=== PATIENT | male | born 1945 | race American Indian/Alaskan Native ===

== ENCOUNTER 2019-08-25 10:35 | Emergency (ER) | payer MEDICARE ==
[2019-08-25 10:42] VITALS: BP 152/44
--- NOTE | 2019-08-25 10:56 | Event Note ---
ED Screening Note ED Screening Note: had a fall yesterday left shoulder pain and left wrist walking with a walker and tripped no LOC This initial assessment/diagnostic orders/clinical plan/treatment(s) is/are subject to change based on patients health status, clinical progression and re- assessment by fellow clinical providers in the ED. Further treatment and workup at subsequent clinical providers discretion. Patient/guardian urged not to elope from the ED as their condition may be serious if not clinically assessed and managed. Initial orders include: XR left wrist XR left shoulder
[2019-08-25] MEDS ORDERED: HYDROcodone/ACETAMINOPHEN 5-325 MG TAB PO ONE (11:26)
--- NOTE | 2019-08-25 11:26 | Emergency Department Report ---
Upper Extremity - HPI Chief Complaint: Extremity Injury, Upper Stated Complaint: FALL Time Seen by Provider: 08/25/19 10:53 Upper Extremity: Left Shoulder, Left Arm Occurred When: 1 Day (yesterday) Mechanism: Fall Severity: severe Symptoms: Yes Pain with Movement, Yes Limited Range of Movement, Yes Weakness Other History: Mr. Westbrook is a 74 yo male with hx of HTN, CVA, prostate CA, dyslipidemia who presents with left arm pain. Patient fell down the driveway. He tripped over the curb yesterday. He has left arm and left leg weakness due to stroke. 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 He has severe pain in the left arm with limited range of motion. PCP Dr. Ramos Zamudio. He walks with a walker. His conditioning has declined. He normall walks daily. However, he has been unable to walk as frequently due to the current COVID-19 pandemic. ED Review of Systems ROS: Stated complaint: FALL Other details as noted in HPI Comment: All other systems reviewed and negative Constitutional: denies: fever, malaise Respiratory: denies: cough Cardiovascular: denies: chest pain ED Past Medical Hx - Past Medical History Previous Medical History?: Yes Hx Hypertension: Yes Hx CVA: Yes Hx of Cancer: Yes (prostrate) Additional medical history: high cholesterol - Surgical History Hx Internal Defibrillator: Yes - Social History Smoking Status: Never Smoker Substance Use Type: None Upper Extremity Exam - Exam General: Vital signs noted. No distress. Alert and acting appropriately. Patient appears frail Needs assistance to transfer from wheelchair to bed. Holds left arm in pain. Left wrist drop evident, atrophic LUE contracted compared to RUE, deformity upper arm near shoulder, intact skin Head and Torso: No HEENT Abnormality, No Neck Tenderness, No Chest/Lungs Abnormality, No Abdominal Tenderness, No Back Tenderness Shoulder Exam: Yes Shoulder Tenderness, Yes Clavicle Tenderness, Yes Shoulder Deformity, Yes AC Joint Tenderness, No Normal Range of Motion in Shoulder Arm Exam: Yes Arm/Humerus Tenderness, Yes Arm Deformity Elbow: No Elbow Tenderness, No Normal Range of Motion in Elbow, No Elbow Deformity Forearm: No Forearm Tenderness, No Forearm Deformity Wrist: No Wrist Tenderness, No Normal ROM in Wrist, No Wrist Deformity, No Snuffbox Tenderness, No Pain with Axial Thumb Compression Hand: No Hand Tenderness, No Hand Deformity, No Digit Tenderness, No Normal ROM in Digit(s) ED Course Vital Signs 08/25/19 08/25/19 10:40 10:42 Temperature 98.8 F Pulse Rate 69 Respiratory 16 Rate Blood Pressure 152/44 O2 Sat by Pulse 97 Oximetry ED Medical Decision Making - Radiology Data Radiology results: report reviewed left hand: osteopenia no significant DJD left humerus: no acute traumatic injury left forearm: osteopenia no acute findings - Medical Decision Making Left arm contusion left shoulder sprain status post mechanical fall. I strongly encourage his caregiver/sister to request home physical therapy by PCP to restore his physical conditioning. Sling provided for comfort: Recommended Tylenol [id number] for pain relief Critical care attestation.: If time is entered above; I have spent that time in minutes in the direct care of this critically ill patient, excluding procedure time. ED Disposition Clinical Impression: Contusion of left arm, Sprain of left shoulder Disposition: DC-01 TO HOME OR SELFCARE Is pt being admited?: No Does the pt Need Aspirin: No Condition: Stable Instructions: Shoulder Sprain (ED) Referrals: PRIMARY CAREMD [Primary Care Provider] - NURA GARNER MD [Staff Physician] - 3-5 Days
--- NOTE | 2019-08-25 12:33 | XRay Report ---
LEFT HAND 2 VIEWS INDICATION: hand pain fall. COMPARISON: None. IMPRESSION: Osteopenia is evident. No acute osseous or soft tissue abnormality. No significant DJD . LEFT FOREARM 2 VIEWS INDICATION: Pain after fall. COMPARISON: None. IMPRESSION: Osteopenia is evident. No acute osseous or soft tissue abnormality. No significant DJD . Signer Name: Ronn Raza Jr, MD Signed: 08/25/2019 12:29 PM Workstation Name: [id number]
--- NOTE | 2019-08-25 12:37 | XRay Report ---
XR humerus 2+V LT INDICATION / CLINICAL INFORMATION: arm pain. COMPARISON: None available. FINDINGS: BONES/JOINT(S): No acute fracture or subluxation. No significant degenerative changes. No focal bone lesion. SOFT TISSUES: No significant abnormality. ADDITIONAL FINDINGS: None. Signer Name: Anjum Cordoba MD Signed: 08/25/2019 12:32 PM Workstation Name: [id number]
== END 2019-08-25 13:35 | disposition home or self-care (01) ==
LOC: ED 10:35
DX: S43.492A Other sprain of left shoulder joint, initial encounter (principal); S40.022A Contusion of left upper arm, initial encounter; I10 Essential (primary) hypertension; E78.00 Pure hypercholesterolemia, unspecified; Z86.73 Personal history of transient ischemic attack (TIA), and cerebral infarction without residual deficits; Z85.46 Personal history of malignant neoplasm of prostate; Z91.018 Allergy to other foods; X58.XXXA Exposure to other specified factors, initial encounter; Y93.89 Activity, other specified; Y92.89 Other specified places as the place of occurrence of the external cause; Y99.8 Other external cause status

== ENCOUNTER 2021-07-14 17:38 | Emergency (ER) | payer MEDICARE ==
[2021-07-14 18:42] VITALS: BP 138/37
== END 2021-07-15 07:00 | disposition left against medical advice (07) ==
LOC: ED 17:38
DX: Z53.21 Procedure and treatment not carried out due to patient leaving prior to being seen by health care provider (principal)